=== PATIENT | male | born 1980 | race Caucasian/White ===

== ENCOUNTER → 2024-01-26 06:47 | Outpatient (REF) | payer OTHER, SELFPAY | LOC: PAVMRI 06:47 | PROVIDERS: ATTENDING PHYSICIAN Specialist; FAMILY PHYSICIAN Physician Assistant Medical | DX: M54.17 Radiculopathy, lumbosacral region (principal) | CPT/HCPCS: 72148 ==

== ENCOUNTER → 2025-04-16 09:31 | Outpatient (REF) | payer OTHER, SELFPAY | LOC: RCS 09:31 | PROVIDERS: ATTENDING PHYSICIAN Physician Assistant Medical | DX: I49.9 Cardiac arrhythmia, unspecified (principal) | CPT/HCPCS: 93225; 93226 ==

== ENCOUNTER → 2025-05-17 08:37 | Outpatient (REF) | payer OTHER, SELFPAY | LOC: RAD 08:37 | PROVIDERS: ATTENDING PHYSICIAN Physician Assistant Medical | DX: M80.00XS Age-related osteoporosis with current pathological fracture, unspecified site, sequela (principal) | CPT/HCPCS: 77080 ==

== ENCOUNTER 2025-07-20 11:23 | Emergency (ER) | payer OTHER, SELFPAY ==
[2025-07-20 11:26] VITALS: BP 138/95
--- NOTE | 2025-07-20 12:42 | ED.GENMED ---
History of Present Illness
General
Chief Complaint: Head Injury
Source: patient and spouse
Exam Limitations: none
Time Seen by Provider: 07/20/25 12:36
Nursing documentation reviewed up to this point in time: agreed with
History of Present Illness
History of Present Illness:
44-year-old male with past medical history as noted presents to the emergency department for evaluation after head trauma. Patient reports that he [place] trail in [place] when an approximately 5 inch diameter tree/branch
snapped back and hit him directly in the head. He says he did not lose consciousness but he did fall to the ground. He says that he has had right frontal headache as well as some mild dizziness since. Denies any neck or back pain, rib pain or
pain in his extremities�no other injuries. He does have a laceration on his eyebrow�unsure of his last tetanus shot. Not on any blood thinners per medication list.
Past History
Past History
ED Past Medical History: Asthma and Other (Vertigo, arachnoid cyst, kidney stones, chronic back pain)
ED Past Surgical History: None
Social History
Tobacco: Smoker
Alcohol: Occasional (Daily wine Toi)
Drug: None
Personal:
Living: with family
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
Family History
Family History: Other (Grandparents with lung cancer, father with hypertension)
Review of Systems
Review of Systems
All Other Systems: ROS reviewed and negative except as documented in HPI and ROS
Constitutional: Denies fever
Respiratory: Denies trouble breathing
Cardiac: Denies chest pain
ABD/GI: Denies abdominal pain or nausea
Musculoskeletal: Denies joint pain, neck pain or back pain
Neurological: Reports dizzy and headache; Denies weakness or numbness
Phy Exam
Physical Exam
Physical Exam:
General: Laying in bed with lights off, appears mildly uncomfortable but wakes easily, alert and oriented x 3, GCS 15
Head: Normocephalic, right frontal/periorbital ecchymosis, right eyebrow laceration approximately 4 cm and roughly linear
Eyes: Conjunctiva normal, EOMI, pupils equal round reactive to light bilaterally
Throat: Airway intact, handling secretions
Neck: Trachea midline, no cervical spine tenderness
Lungs: Breathing comfortably not in distress, no tachypnea or hypoxia
Heart: Regular rate; no chest wall tenderness
Abd: Soft, non distended, nontender
Neuro: Cranial nerves intact, speech fluid, motor and sensory intact in all extremities without focal deficit
Skin: Eyebrow laceration as above
Extremities: Atraumatic, moving all extremities without pain
Scores
Heart Failure Risk
Heart Failure Risk Score: Not Applicable
Heart Score for Chest Pain Patients
STEMI patient?: Not applicable
Withdrawal Assessment of Alcohol
Withdrawal Assessment Completed?: Not applicable
Course
Orders/Labs/Results
Orders:
Orders
07/20/25
CT Facial Bones W/o Iv Contras Urgent
Comment:
Reason For Exam: head trauma from a tree
CT Head W/o Iv Contrast Urgent
Comment:
Reason For Exam: head trauma by a tree
07/20/25 12:42
Ketorolac [Toradol] 60 mg IM NOW STA
Lidocaine/Epinephrine/Tetracai [Let Topical Anesthetic Gel] 3 ml TOPICAL NOW STA
Tetanus/Diphth/Acelpertussis [Adacel] 0.5 ml IM .ONCE ONE
07/20/25 12:43
Lidocaine/Epinephrine/Tetracai [Let Topical Anesthetic Gel] 3 ml .ROUTE .STK-MED ONE
Vital Signs
Initial and Last Documented VS:
Initial Vital Signs
Temp Pulse Resp BP Pulse Ox
36.9 C 86 18 138/95 97
07/20/25 11:26 07/20/25 11:26 07/20/25 11:26 07/20/25 11:26 07/20/25 11:26
Last Documented Vital Signs
Temp Pulse Resp BP Pulse Ox
36.9 C 86 18 138/95 97
07/20/25 11:26 07/20/25 11:26 07/20/25 11:26 07/20/25 11:26 07/20/25 12:45
Procedures
Laceration Closure
Right Eye brow:
Status of Wound: dirty
Size of Wound in cm: 4
Description of Wound Edges: ragged
Preparation: cleaned with saline
Anesthesia: 1% Lidocaine and Topical-LET
Revision/Debridement: minor revision
Wound exploration: extensive cleaning of contaminated wound
Type of Closure: single layer closure
Skin Closure Material: 6-0 nylon
Number of sutures: 6
MDM/Problems Addressed
Differential Diagnosis Includes:
Concussion, subdural/subarachnoid hemorrhage, forehead contusion
MDM/Problems Addressed:
44-year-old male presents for evaluation after being struck in the head by a large tree/branch. He has severe headache since also reports some mild dizziness. He is not on any blood thinners. He does have some bruising near the right
forehead/periorbital region as well as a right eyebrow laceration; no other serious injuries. Unsure of his last tetanus. Vitals and exam as above. Will plan to check CT of the head and facial bones given his reported significant headache since
the trauma. Will update tetanus and will need to irrigate and repair eyebrow laceration. Will treat symptomatically. Monitor closely reassess after the above.
CT head and facial bones negative for any acute intracranial abnormality or facial bone fracture. Patient feeling better after Toradol. Tetanus updated. Laceration repaired. Stable for discharge.
*Radiology
Radiology exam reviewed: radiology read reviewed
*Pulse Oximetry
SaO2: 97
Oxygen Mode of Delivery: Room air
Patient hypoxic: no (97%)
*Critical Care Note
Total Time (30-74mins, 75-104mins- exclusive of procedures): Not Applicable
Data Reviewed
Source: patient and spouse
ED Attending Note
-
Portions of this chart may have been created with voice recognition software.� Occasional wrong word or��sound alike� substitutions may have occurred due to the inherent limitations of voice recognition software.
Discharge Plan
Departure
Patient Disposition: Home (Routine Discharge)
Date of Disposition: 07/20/25
Time of Disposition: 16:06
Patient with high blood pressure during this ER visit?: Yes
Discharge Problem:
Laceration of eyebrow, Concussion
Instructions: Concussion, Adult (DC), Laceration Repair With Stitches (DC)
Prescriptions:
No Action
cyclobenzaprine 10 MG tablet
10 mg PO PRN PRN (Reason: pain)
ibuprofen 800 MG tablet
800 mg PO Q8H PRN (Reason: pain)
meclizine [Dramamine Less Drowsy] 25 MG tablet
25 mg PO PRN PRN (Reason: dizziness)
diazepam 2 MG tablet
2 mg PO TIDPRN PRN (Reason: pain)
hydromorphone 4 MG tablet
4 mg PO Q4HPRN PRN (Reason: pain)
duloxetine 60 MG capsule,delayed release(DR/EC)
60 mg PO DAILY
buprenorphine HCl [Belbuca] 600 MCG film
600 mcg sublingual BID
valacyclovir [Valtrex] 1 gram tablet
1,000 mg PO TID Qty: 21 0RF
cefdinir 300 mg capsule
300 mg PO BID Qty: 14 0RF
azithromycin 250 mg tablet
250 mg PO DAILY 4 Days Qty: 4 0RF
Referrals:
Bartolo Coombs PA-C [Family Provider, Family Practice] - Follow up in 1 week
Activity Restrictions/Additional Instructions:
You had 6 stitches placed in your eyebrow for your laceration; they must be removed in 5 to 7 days. You can either see your primary doctor, go to urgent care, or return here to the ER to have stitches removed. Please return immediately if you have
any signs of infection.
Interventions
Interventions:
*Risk Screen - Suicide Last Done: 07/20/25 11:26
*General Assessment Last Done: 07/20/25 11:26
*Neglect/Abuse Screening Last Done: 07/20/25 11:26
*ED- Fall Risk Assessment Last Done: 07/20/25 11:26
*ED COVID-19 Vaccine History Last Done: 07/20/25 11:26
*ED Influenza Vaccine History Last Done: 07/20/25 11:26
ED- Neurological Assessment Last Done: 07/20/25 12:15
ED-Skin Assessment Last Done: 07/20/25 12:15
Discharge Date and Time
Print Language: [place]
[2025-07-20] MEDS: LET TOPICAL ANESTHETIC GEL 3 ML TOPICAL (12:43)
[2025-07-20] MEDS: ADACEL 0.5 ML IM (12:50)
[2025-07-20] MEDS: TORADOL 60 MG IM (12:50)
== END 2025-07-20 16:11 | disposition home or self-care (01) ==
LOC: EMR 11:23
PROVIDERS: EMERGENCY PHYSICIAN Emergency Medicine; FAMILY PHYSICIAN Physician Assistant Medical
DX: S01.111A Laceration without foreign body of right eyelid and periocular area, initial encounter (principal); S06.0X0A Concussion without loss of consciousness, initial encounter; J45.909 Unspecified asthma, uncomplicated; M54.9 Dorsalgia, unspecified; G89.29 Other chronic pain; F17.200 Nicotine dependence, unspecified, uncomplicated; Z23 Encounter for immunization; W20.8XXA Other cause of strike by thrown, projected or falling object, initial encounter; Y93.H2 Activity, gardening and landscaping; Y92.008 Other place in unspecified non-institutional (private) residence as the place of occurrence of the external cause
CPT/HCPCS: 99284; 96372; 12013; 90471; 70450; 70486; 90715